=== PATIENT | male | born 1935 | race Caucasian/White ===

== ENCOUNTER 2018-12-09 19:07 | Inpatient (IN) ==
[2018-12-09] MEDS ORDERED: NS 1,000 ML IV PRN (20:41)
[2018-12-09] MEDS ORDERED: ZOFRAN IV PRN (20:41)
--- NOTE | 2018-12-09 21:20 | Diag Imaging Result Doc PS360 ---
CHEST-2 VIEWS - 12/09/2018 INDICATION: CHI, fever COMPARISON: 11/06/2018 FINDINGS: Stable sternotomy wires. Stable mild right hemidiaphragm elevation with adjacent linear atelectasis. No infiltrates or edema. No pneumothorax or pleural effusion. Heart size and pulmonary vascularity is normal. IMPRESSION: No change from prior. Electronically signed by Pan Mejia 12/09/2018 9:17 PM
--- NOTE | 2018-12-09 21:57 | Diag Imaging Result Doc PS360 ---
CT HEAD W/O CONTRAST - 12/09/2018 INDICATION: CHI, AMS and inability to walk COMPARISON: 05/02/2016 FINDINGS: The ventricles and sulci are normal in size and contour. There is stable mild to moderate periventricular white matter chronic microvascular disease. No intracranial mass or hemorrhage. The skull is intact. The sinuses, mastoids, and middle ears are clear. IMPRESSION: No acute disease or change from prior. This exam was performed using automated exposure control, adjustment of mA or kV according to patient size, and/or use of iterative reconstruction technique Electronically signed by Pan Mejia 12/09/2018 9:55 PM
--- NOTE | 2018-12-09 22:00 | Diag Imaging Result Doc PS360 ---
CT CERVICAL SPINE - 12/09/2018 INDICATION: CHI and inability to walk COMPARISON: 05/02/2016 FINDINGS: Alignment is anatomic. Vertebral body heights and intervertebral disc spaces are preserved. Stable mild multilevel degenerative disc disease with some osteophyte formation. This is most notable at C3-4, C5-6 and C6-7. Stable moderately advanced facet degeneration at numerous levels left greater than right. Stable advanced vascular calcification of the carotid bulbs. No significant central canal stenosis. IMPRESSION: Cervical spondylosis. Vascular disease of the carotid bulbs. No acute disease or change from prior. This exam was performed using automated exposure control, adjustment of mA or kV according to patient size, and/or use of iterative reconstruction technique Electronically signed by Pan Mejia 12/09/2018 9:57 PM
[2018-12-09 22:22] LABS: BASO# 0.03 X1000 (0.0-0.2); BASO% 0.2 % (0.0-0.8); HEMATOCRIT 44.7 % (42.0-52.0); IMM GRAN# 0.05 X1000 (0.0-0.04); IMM GRAN% 0.3 % (0.0-0.5); LYMPH# 1.16 X1000 (1.2-3.4); MCH 30.1 PG (27-31); MCHC 33.6 g/dL (33-37); MCV 89.8 FL (81-99); MONO# 1.72 X1000 (0.11-0.59); MONO% 8.9 % (1.7-9.3); MPV 9.4 FL (7.4-10.4); NEUT# 16.43 X1000 (1.4-6.5); NEUT% 84.6 % (42.2-75.2); PLT 175 X1000 (130-400); RBC 4.98 XMIL (4.7-6.1); RDW 14.1 % (11.5-14.5); WBC 19.39 X1000 (4.8-10.8)
[2018-12-09 22:30] LABS: INR 1.37
[2018-12-09 23:17] LABS: AGAP 10; ALB/GLOB RATIO 1.2; ALBUMIN 3.6 g/dL (3.5-5.0); ALKALINE PHOSPHATASE 73 U/L (32-122); BUN 18 mg/dL (8-22); CALCIUM 8.7 mg/dL (8.8-10.2); CHLORIDE 100 mmol/L (98-107); CK PROFILE 71 U/L (24-204); COSMO 282; CREATININE 1.1 mg/dL (0.7-1.2); ESTIMATED GFR > 60; GLUCOSE 173 mg/dL (70-104); GOT 13 U/L (10-34); GPT 10 U/L (10-44); POTASSIUM 3.4 mmol/L (3.5-5.1); SODIUM 138 mmol/L (136-145); TCO2 28 mmol/L (25-35); TOTAL PROTEIN 6.5 g/dL (6.3-8.3)
[2018-12-10] MEDS: TYLENOL PO PRN ×3 (00:30→20:24)
[2018-12-10] MEDS: KLOR-CON PO SCH ×3 (00:30→20:25)
[2018-12-10] MEDS: COLACE PO SCH ×3 (00:30→20:25)
[2018-12-10 00:50] LABS: URINE SOURCE CATH
[2018-12-10 00:59] LABS: BILIRUBIN URINE NEGATIVE (NEGATIVE); BLOOD URINE MODERATE (NEGATIVE); COLOR YELLOW; GLUCOSE URINE NEGATIVE (NEGATIVE); KETONE URINE TRACE mg/dL (NEGATIVE); LEUKOCYTES URINE MODERATE (NEGATIVE); NITRITE URINE POSITIVE (NEGATIVE); PROTEIN URINE 100 mg/dL (NEGATIVE); TURBIDITY URINE CLEAR (CLEAR); UR EPITHELIAL CELLS <10 /HPF (<10); URINE BACTERIA 4+ /HPF; URINE RBC <10 /HPF (<10); URINE WBC TNTC /HPF (<10); UROBILINOGEN URINE NORMAL (NORMAL)
[2018-12-10] MEDS: RESTASIS 0.05% OPH DROPS BOTH EYES SCH ×3 (05:42→20:24)
--- NOTE | 2018-12-10 07:42 | HISTORY AND PHYSICAL ---
INDICATIONS: Status post closed head injury with altered mental status. HISTORY OF PRESENT ILLNESS: Mr. Concepcion is an 83-year-old gentleman with a significant past medical history to include, but not limited to, history of anemia, atherosclerotic coronary artery disease, prostate cancer, hypertension, dyslipidemia, hypothyroidism, lifelong insomnia, testicular hypofunction and diabetes as well as vitamin D. He presents via private vehicle to the emergency room 24 hours after suffering a fall while on vacation with his family. The patient denies any lightheadedness or dizziness. He denies any fevers or chills. The daughter reports that over the past 24 hours patient has become more lethargic and altered, and inability to ambulate without significant assistance. This is a significant clinical change. Brief evaluation in the emergency room, the patient is alert and oriented x2 stating that the day of the week is Saturday versus Saturday. He is able to name the month and able to name the year. He also is familiar with his birthday. Based on the history of fall and ongoing use of anticoagulant, and altered mental status, it is felt prudent to admit the patient for initial overnight observation and further diagnostic workup. We will be pursuing a CT scan of the head and neck as well as some general laboratory and following up in the morning. MEDICATIONS ON ADMISSION: Including amlodipine 5 mg once daily, nasal saline as needed, Breo 1 puff once daily, Eliquis 5 mg twice daily, fish oil 1200 mg once daily, levothyroxine 137 mcg once daily, Lorazepam 3 mg p.o. at bedtime, potassium 20 mEq p.o. b.i.d., simvastatin 40 mg once daily. Flomax 0.4 mg twice daily, Tikosyn 500 mcg b[place] [address] [place] weekly. ALLERGIES: No drug allergies. SOCIAL HISTORY: The patient is after 58 years of marriage. One daughter and 3 grandchildren. No great grandchildren. 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 He has been fully retired since 1997. He is a nonsmoker. He reports approximately 1 drink per month of white wine. FAMILY HISTORY: Father at 62 due to [place]. Mother at 88 secondary to congestive heart failure. Brother at 68. Issues with regards to heart and 3 sisters , cause is unknown. He is the sole surviving member of his family. PAST MEDICAL HISTORY: Including insomnia for 20+ years. Hypertension. Asthma. Atrial fibrillation new onset in May of 2018. Hypothyroidism. History of BPH with lower urinary tract symptoms further complicated by erectile dysfunction, urge incontinence and hypogonadism. He had a TURP several months ago with a focal area of prostate cancer. This continues to be under observation. Dyslipidemia further complicated by history of coronary disease status post historical bypass. Diverticular disease. Chronically elevated right hemidiaphragm. Peripheral vascular disease. Borderline pulmonary hypertension with most recent cardiac echo showing PA pressures down from 40 to 35 mmHg with moderate TR. Vitamin D deficiency which he continues on supplement and historical low testosterone which is currently not being supplemented at this time. Some recent studies include a cardiac echo in [address] scan of the chest in July of 2018. CT scan of the chest demonstrating a small hiatal hernia. 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 REVIEW OF SYSTEMS: A 12 point Review of Systems is unremarkable except that noted within the HPI. PHYSICAL EXAMINATION: VITAL SIGNS: Vitals in the emergency room, temperature 100.4 degrees, pulse at 89, respirations at 20, blood pressure 106/73 saturating 92% on room air. Exam again is limited secondary to wheelchair-bound status. The patient is interviewed in the emergency room waiting room. LABORATORY DATA: White blood cell count elevated at 19.39, hemoglobin and hematocrit 15.0 and 47.7 with platelets at 175,000. He does have a left shift. PT/INR at 18.0 and 1.37. Sodium 138, potassium at 3.4, chloride 100, bicarb at 28, BUN and creatinine at 18 and 1.0. Glucose at 173. Calcium low at 8.7, AST and ALT at 13 and 10. CK at 71. Albumin at 3.6. Urine is noted to be markedly abnormal with the presence of protein, ketones, blood and nitrates, leukocytes and 4+ bacteria. Urine culture is pending at the time of admission. Additional studies including a CT scan of the cervical spine demonstrating cervical spondylosis with extensive vascular disease of the carotid bulbs when compared to previous cervical spine dated April of 2016. There are no new and/or additional findings. Non contrasted CT scan of the head when compared to previous study dated April of 2016 with no evidence of intracranial hemorrhage or mass. Skull is intact and sinuses are unremarkable. IMPRESSION: An 86-year-old with history of closed head injury complicated by altered mental status with clinical evidence suggestive of urinary tract infection. He will be admitted for IV antibiotics and further medical management based on the culture results. He has no allergies. He will be empirically started on Levaquin 500 mg once daily pending return of culture. Additional problems including hypokalemia will be managed with supplemental potassium and IV maintenance fluids, and inability to walk unassisted. We will have physical therapy see him today. No new and/or additional recommendations at this time. Note is dictated on the morning following admission. cc: Glen Bishop DO
[2018-12-10] MEDS: BREO ELLIPTA 200/25 MCG INH INH SCH (08:09)
[2018-12-10] MEDS ORDERED: NORVASC PO SCH (09:00)
[2018-12-10] MEDS: NS + KCL 20 MEQ 1,000 ML IV SCH (09:27)
[2018-12-10] MEDS: LEVAQUIN 500 MG/D5W 500 MG/100 ML IVPB IV SCH (09:27)
[2018-12-10] MEDS: ELIQUIS PO SCH ×2 (09:28→20:24)
[2018-12-10] MEDS: FLOMAX PO SCH (09:28)
[2018-12-10] MEDS: ZOCOR PO SCH (09:28)
[2018-12-10] MEDS: PATIENT'S OWN MED PO SCH ×2 (09:29→21:25)
--- NOTE | 2018-12-10 18:18 | PROGRESS NOTE ---
DATE: 12/10/2018 INDICATION FOR PROLONGED HOSPITALIZATION: Ongoing medical management for UTI. Vitals this afternoon: Blood pressure 118/77, pulse at 77, respirations at 24, temperature at 99.1 degrees, saturating 93% on room air. Inputs and outputs are 960 in and 575 out, for +385. No additional laboratory I for review at this time. The patient continues on IV Levaquin as well as normal saline with supplemental K. OBJECTIVE: Exam is unremarkable. Specifically:HEENT: Unremarkable. Cardiovascular: Irregularly irregular rhythm, but significantly less tachycardic than earlier this morning and last night when he was seen in the emergency room. Lungs: Decreased respiratory effort, but clear to auscultation. Abdomen: Soft. Extremities: Benign, without clubbing, cyanosis, or edema. Neurological: Cranial nerves 2 through 12 appear to be grossly intact. IMPRESSION: An 83-year-old status post 48 hours from closed head injury with altered mental status, presenting to the emergency room with systemic inflammatory response syndrome criteria by temperature, by pulse, by white blood cell count, likely urinary tract infection mediated, patient having spiked a fever this morning to 100.7 degrees. Blood cultures not obtained on admission. Urine culture is pending at the time of dictation. Orders for blood culture showed a patient spike of fever greater than 100.1 degrees. Hypokalemia, being replaced with supplemental potassium and intravenous fluids. Patient with atrial fibrillation with rapid ventricular response on admission. Patient continues in atrial fibrillation,, but not as tachycardic. Laboratory and electrocardiogram are pending for tomorrow morning. No new and/or additional recommendations at this time. Patient has been advised that he may take his own antiarrhythmic, specifically Tikosyn 500 mcg b.i.d. as prescribed by gas plant technician. Note is dictated on the evening of rounds. cc: Glen Bishop DO
[2018-12-10] MEDS ORDERED: VANCOMYCIN 1 GM/NS 1 GM/250 ML IVPB IV ONE (23:34)
[2018-12-11] MEDS: NS + KCL 20 MEQ 1,000 ML IV SCH ×2 (01:49→18:16)
[2018-12-11] MEDS: TYLENOL PO PRN (03:06)
[2018-12-11] MEDS: LEVAQUIN 500 MG/D5W 500 MG/100 ML IVPB IV SCH (06:30)
--- NOTE | 2018-12-11 07:14 | Diag Imaging Result Doc PS360 ---
EXAM: CHEST-PORTABLE 12/11/2018 HISTORY: fever TECHNIQUE: AP portable at 0616 COMMENT: The inspiration is less optimal than on 12/09/2018. There is subsegmental atelectasis in the right middle lobe and lower lobe. IMPRESSION: Right basilar atelectasis. Electronically signed by Nain Sewell 12/11/2018 7:12 AM
--- NOTE | 2018-12-11 07:21 | EKG Report ---
Test Performed on : 12/11/2018 07:12:51 AM Test Reason : Afib with RVR Blood Pressure : / mmHG Vent. Rate : 105 BPM Atrial Rate : 110 BPM P-R Int : 000 ms QRS Dur : 150 ms QT Int : 412 ms P-R-T Axes : 000 -52 110 degrees QTc Int : 544 ms Atrial fibrillation. with rapid ventricular response. Left axis deviation Left bundle branch block Abnormal ECG When compared with ECG of 10-DEC-2018 08:54, (Unconfirmed) QT has lengthened Confirmed by Irvin DOMINGUEZ, Jonas Jackson ([id number]) on 12/11/2018 6:39:20 PM
[2018-12-11 07:39] LABS: INR 1.6; PROTIME 20.2 Seconds (11.0-16.0)
[2018-12-11 07:40] LABS: BASO# 0.02 X1000 (0.0-0.2); BASO% 0.2 % (0.0-0.8); EOS# 0.12 X1000 (0.0-0.7); HEMATOCRIT 41.4 % (42.0-52.0); HEMOGLOBIN 13.7 g/dL (14.0-18.0); LYMPH# 0.99 X1000 (1.2-3.4); LYMPH% 8.4 % (20.5-51.1); MCH 29.9 PG (27-31); MCHC 33.1 g/dL (33-37); MCV 90.4 FL (81-99); MONO# 1.16 X1000 (0.11-0.59); MONO% 9.9 % (1.7-9.3); MPV 10.1 FL (7.4-10.4); NEUT# 9.45 X1000 (1.4-6.5); NEUT% 80.5 % (42.2-75.2); PLT 157 X1000 (130-400); RBC 4.58 XMIL (4.7-6.1); RDW 14.2 % (11.5-14.5); WBC 11.74 X1000 (4.8-10.8)
[2018-12-11] MEDS: PATIENT'S OWN MED PO SCH ×2 (08:06→21:54)
[2018-12-11] MEDS: KLOR-CON PO SCH ×2 (08:06→21:54)
[2018-12-11] MEDS: FLOMAX PO SCH (08:06)
[2018-12-11] MEDS: ELIQUIS PO SCH ×2 (08:07→21:54)
[2018-12-11] MEDS: RESTASIS 0.05% OPH DROPS BOTH EYES SCH ×2 (08:07→21:54)
[2018-12-11] MEDS: ZOCOR PO SCH (08:07)
[2018-12-11] MEDS: COLACE PO SCH ×2 (08:07→21:54)
--- NOTE | 2018-12-11 08:10 | PROGRESS NOTE ---
DATE: 12/11/2018 INDICATION FOR PROLONGED HOSPITALIZATION: Patient spiking fever to 102.8 last night, status post addition of vancomycin to Levaquin pending return of final urine culture, and now blood culture is pending at the time of dictation. Patient complaining of generalized weakness, and requesting to ambulate in the lopez secondary to same. OBJECTIVE: Vital signs: This morning, temperature at 99.4 degrees, pulse rate at 59, blood pressure 93/57, and oxygen at 90%. I's/O's 1200 in and 1375 out for -175. HEENT: Unremarkable. Cardiovascular: Bradycardic. Lungs: With decreased respiratory sounds throughout secondary to poor inspiratory effort. There are no wheezes, rhonchi or rales. Abdomen: Soft with some nonspecific tenderness localizing in the left lower quadrant, but without rebound or guarding. Extremities: Benign without clubbing, cyanosis, or edema. Neurological: Cranial nerves 2-12 appear to be grossly intact. LABORATORY: Pending this morning. It includes CBC and CMP. Blood cultures and urine cultures are pending at the time of dictation. IMPRESSION: An 83-year-old with history of closed head injury earlier in the week, admitted for altered mental status and fever. Found to have abnormal urinalysis. Currently being covered with Levaquin pending final results of urine culture. However, last night spiking fever to 102.8, raising concern for concurrent process and/or suboptimal coverage. A single dose of vancomycin offered last night with blood cultures pending this morning. Now with nonspecific left lower quadrant pain, perhaps a source of fever and abnormal exam. Historical review of hospital radiology reports fails to demonstrate any evidence of historical CT scan of the abdomen and pelvis. This will be ordered today with interval followup this evening. There is some concern with spiking fevers, and now bradycardia and hypotension. We will be holding the Norvasc and following clinically in this regard. Transition to intensive care unit for vasopressor support may be indicated. We will be obtaining orthostatic vitals today and, provided the patient is safe, allowing the patient to ambulate as requested. No new and/or additional recommendations at this time. We will return this evening to discuss labs and CT scan findings. cc: Glen Bishop DO
[2018-12-11 08:16] LABS: AGAP 10; ALBUMIN 2.9 g/dL (3.5-5.0); ALKALINE PHOSPHATASE 89 U/L (32-122); BUN 15 mg/dL (8-22); CALCIUM 8.5 mg/dL (8.8-10.2); CHLORIDE 107 mmol/L (98-107); COSMO 282; CREATININE 0.8 mg/dL (0.7-1.2); ESTIMATED GFR > 60; GLUCOSE 131 mg/dL (70-104); GOT 23 U/L (10-34); GPT 14 U/L (10-44); POTASSIUM 3.6 mmol/L (3.5-5.1); SODIUM 140 mmol/L (136-145); TCO2 23 mmol/L (25-35); TOTAL BILIRUBIN 0.64 mg/dL (0.20-1.00); TOTAL PROTEIN 5.7 g/dL (6.3-8.3)
[2018-12-11 08:18] LABS: VITAMIN D 25 HYDROXY 32.7 NG/DL
[2018-12-11] MEDS: BREO ELLIPTA 200/25 MCG INH INH SCH (08:21)
[2018-12-11] MEDS ORDERED: MIRALAX PO SCH (09:00)
--- NOTE | 2018-12-11 10:22 | Diag Imaging Result Doc PS360 ---
EXAM: CT ABDOMEN/PELVIS W/WO DANNIEAS 12/11/2018 HISTORY: LLQ pain, fever 102.8 and low BP TECHNIQUE: This exam was performed using automated exposure control, adjustment of mA or kV according to patient size, and/or use of iterative reconstruction technique. COMMENT: There are no previous abdominal studies available for comparison, where possible comparison is made with the CT of the chest dated 07/21/2018. Compared to the previous thoracic study there is more atelectasis or pneumonia in the right lower lobe. There is also some atelectatic change in the right middle lobe and left lower lobe which is similar in appearance to the previous study. There are some apparent granulomata present in the left lower lobe. There are bilateral small pleural effusions. This was not previously the case. The liver is somewhat inverted. There are no apparent gallstones. There is a 1 to 2 mm calculus in the upper pole of the right kidney. There are some calcifications present in the cortex or at in the wall of the cysts present in the lower pole of the right kidney. There is no evidence of nephrolithiasis on the left. There is no evidence of hydronephrosis. There is no evidence of ureterolithiasis. There is a Reaves catheter in the bladder. There are granulomata in the spleen. The adrenal glands are not enlarged. There is some edema around the tail of the pancreas and in the anterior pararenal space on the left which was not the case at the time the previous thoracic study. There is gas and stool throughout the colon. There are numerous renal cysts. There is decreased contrast enhancement in the anterior renal cortex on the right which may be indicative of pyelonephritis. There is some slight edema anterior to Gerota's fascia on the right. The appendix is unremarkable. There is no evidence of small bowel obstruction. There is no evidence of significant adenopathy. Pelvis: There is stool throughout the rectosigmoid colon particularly in the rectum. There is no evidence of free fluid. There is contrast in both distal ureters. There is no evidence of mass or significant adenopathy. There is left-sided spondylolysis at L5. No evidence of acute bony abnormality is present. IMPRESSION: 1. Atelectasis versus pneumonia right lower lobe. Bilateral small effusions. 2. Mild interstitial pancreatitis. 3. Right pyelonephritis. 4. Constipation. Electronically signed by Nain Sewell 12/11/2018 10:19 AM
[2018-12-11] MEDS: ROCEPHIN 1 GM in NS 50 ML IV SCH (14:27)
[2018-12-11 14:52] LABS: PTT 39.1 Seconds (22.3-41.8)
[2018-12-11 17:24] LABS: INR MIXING STUDY 0 MIN 1.12; PROTIME MIXING STUDY O MIN 15.3 Seconds (9.2-11.7); PTT MIXING STUDY O MIN 31.8 Seconds (22.0-36.0)
[2018-12-11 17:25] LABS: INR MIXING STUDY 30 MIN 1.13; INR MIXING STUDY 60 MIN 1.14; PROTIME MIXING STUDY 3O MIN 15.5 Seconds (9.2-11.7); PROTIME MIXING STUDY 6O MIN 15.5 Seconds (9.2-11.7)
[2018-12-11 17:26] LABS: INR MIXING STUDY 120 MIN 1.16; INR MIXING STUDY 90 MIN 1.14; PROTIME MIXING STUDY 12O MIN 15.7 Seconds (9.2-11.7); PTT MIXING STUDY 12O MIN 34.3 Seconds (22.0-36.0); PTT MIXING STUDY 6O MIN 33.4 Seconds (22.0-36.0)
[2018-12-11] MEDS ORDERED: METAMUCIL PO ONE (18:37)
--- NOTE | 2018-12-11 18:38 | EKG Report ---
Test Performed on : 12/10/2018 08:54:07 AM Test Reason : On admission Afib history Blood Pressure : / mmHG Vent. Rate : 104 BPM Atrial Rate : 117 BPM P-R Int : 000 ms QRS Dur : 152 ms QT Int : 376 ms P-R-T Axes : 000 -54 118 degrees QTc Int : 494 ms Atrial fibrillation. with rapid ventricular response. Left axis deviation Left bundle branch block Abnormal ECG When compared with ECG of 02-MAY-2016 11:34, Atrial fibrillation. has replaced Sinus rhythm. Left bundle branch block is now present Minimal criteria for Septal infarct are no longer present Confirmed by Irvin DOMINGUEZ, Jonas Jackson ([id number]) on 12/11/2018 6:38:19 PM
--- NOTE | 2018-12-11 19:50 | PROGRESS NOTE ---
DATE: 12/11/2018 INDICATION FOR PROLONGED HOSPITALIZATION: Ongoing management for sepsis based on SIRS criteria and gram-negative rei on admission urine culture. Blood cultures are still pending for recent fever to 102.8. Based on abnormal exam today, he underwent a CT scan of the abdomen and pelvis with findings consistent with nonspecific atelectatic changes in the right middle and left lower lobes, bilateral small pleural effusions. Some nonspecific edema around the tail of the pancreas and anterior pararenal space on the left, decreased contrast enhancement in the right renal cortex on the right which may be indicative of pyelonephritis. This is further complicated by a small amount of edema in the fascia on the right. Constipation, particularly localized in the rectosigmoid region. Results are reviewed and discussed with the patient. OBJECTIVE: Most Recent Set of Vitals: Blood pressure 150/77, respirations at 18, temperature at 99.0 degrees, saturating 95% on room air. HEENT: Unremarkable. Cardiovascular: Regular rate and rhythm. Lungs: Clear. Abdomen: Soft. Nonspecific tenderness in the bilateral lower quadrants without rebound or guarding. Extremities: Trace pretibial edema is suggested in the lower extremities. Neurological: Cranial nerves 2 through 12 are grossly intact. Patient is alert and oriented x3. LABORATORY: For today, showing a white blood cell count of 11.74, down from 19.39, hemoglobin and hematocrit at 13.7 and 41.4, platelets at 157,000. PT prolonged at 20.2 with INR 1.6. PT failing to correct with mixing studies. Sodium 140, potassium 3.6, chloride 107, BUN and creatinine at 15 and 0.8, glucose at 137, calcium at 8.5. AST and ALT are normal at 23 and 14. Albumin is slightly decreased at 2.9. Plasma lactate at 0.8. B12 low at 278. Vitamin D low normal at 32.7. IMPRESSION: An 83-year-old with sepsis, likely urologic mediated. He continues on Levaquin and Rocephin. Urine culture is consistent with gram-negative rods. Blood cultures are pending. Patient continues with low grade fever at 99, but is otherwise hemodynamically stable with a more appropriate heart rate and blood pressure rising. CT scan today showing findings as mentioned above. He has several issues, including nonspecific edema of the tail of the pancreas suggestive of pancreatitis, and also changes within the right kidney suggestive of pyelonephritis, and constipation. We will be adjusting his cathartic therapy and following clinically. I have advised them that return of negative blood cultures would be favorable, and no fever for 24 hours on antibiotics as well as a progression in his appetite would all be necessary prior to consideration for discharge. We also discussed rehab placement as a viable option when transitioning to home. I do not feel that the patient is well enough to return to home and independent living, and rehab offers him the best chance of recovery possible. DISPOSITION: The patient understands the course of treatment and plan. No further issues at this time. Note is dictated on the evening of rounds. I will be contacting the daughter accordingly. cc: DO STEFFANIE Ely
[2018-12-11] MEDS: MIRALAX PO SCH (21:54)
[2018-12-12] MEDS: LEVAQUIN 500 MG/D5W 500 MG/100 ML IVPB IV SCH (06:31)
[2018-12-12] MEDS ORDERED: DULCOLAX PR ONE (07:04)
[2018-12-12 07:16] LABS: HEMATOCRIT 43.1 % (42.0-52.0); HEMOGLOBIN 14.7 g/dL (14.0-18.0); LYMPH% 12.1 % (20.5-51.1); MCH 30.1 PG (27-31); MCHC 34.1 g/dL (33-37); MCV 88.1 FL (81-99); MPV 9.4 FL (7.4-10.4); NEUT% 72.5 % (42.2-75.2); PLT 156 X1000 (130-400); RBC 4.89 XMIL (4.7-6.1); WBC 9.35 X1000 (4.8-10.8)
[2018-12-12 07:17] LABS: BASO# 0.02 X1000 (0.0-0.2); BASO% 0.2 % (0.0-0.8); EOS# 0.17 X1000 (0.0-0.7); EOS% 1.8 % (0.0-10.0); IMM GRAN# 0.06 X1000 (0.0-0.04); IMM GRAN% 0.6 % (0.0-0.5); LYMPH# 1.13 X1000 (1.2-3.4); MONO% 12.8 % (1.7-9.3); NEUT# 6.77 X1000 (1.4-6.5)
[2018-12-12 07:40] LABS: PROTIME 17.9 Seconds (11.0-16.0)
[2018-12-12 07:41] LABS: INR 1.37
[2018-12-12 07:42] LABS: PTT 38.6 Seconds (22.3-41.8)
[2018-12-12 07:50] LABS: MAGNESIUM 1.7 mg/dL (1.5-2.7); PHOSPHORUS 1.7 mg/dL (2.7-4.5)
[2018-12-12 08:04] LABS: AGAP 11; ALB/GLOB RATIO 1.2; ALKALINE PHOSPHATASE 84 U/L (32-122); AMYLASE 25 U/L (20-200); BUN 12 mg/dL (8-22); CALCIUM 8.1 mg/dL (8.8-10.2); CHLORIDE 104 mmol/L (98-107); COSMO 276; CREATININE 0.8 mg/dL (0.7-1.2); ESTIMATED GFR > 60; GLUCOSE 107 mg/dL (70-104); GOT 53 U/L (10-34); GPT 35 U/L (10-44); LIPASE 27 U/L (13-60); POTASSIUM 3.9 mmol/L (3.5-5.1); SODIUM 138 mmol/L (136-145); TCO2 23 mmol/L (25-35); TOTAL PROTEIN 5.5 g/dL (6.3-8.3)
[2018-12-12] MEDS: NS + KCL 20 MEQ 1,000 ML IV SCH ×3 (08:17→22:01)
--- NOTE | 2018-12-12 09:03 | Diag Imaging Result Doc PS360 ---
EXAM: CHEST-2 VIEWS 12/12/2018 HISTORY: Fever on ABX TECHNIQUE: PA and lateral chest COMMENT: There are platelike opacities over the right base. There appears to be some loculated pleural effusion or thickening laterally on the right which was not present on 12/11/2018. The lungs are actually better expanded on the current study. IMPRESSION: Atelectasis versus pneumonia in the right lower and/or middle lobe. Small loculated right pleural effusion. Electronically signed by Nain Sewell 12/12/2018 9:01 AM
[2018-12-12] MEDS: BREO ELLIPTA 200/25 MCG INH INH SCH (09:30)
[2018-12-12] MEDS: CYANOCOBALAMIN IM SCH (11:00)
[2018-12-12] MEDS: MIRALAX PO SCH ×2 (11:00→21:42)
[2018-12-12] MEDS: FLOMAX PO SCH (11:01)
[2018-12-12] MEDS: KLOR-CON PO SCH ×2 (11:01→21:43)
[2018-12-12] MEDS: COLACE PO SCH ×2 (11:01→21:43)
[2018-12-12] MEDS: ELIQUIS PO SCH ×2 (11:01→21:43)
[2018-12-12] MEDS: RESTASIS 0.05% OPH DROPS BOTH EYES SCH ×2 (11:01→21:49)
[2018-12-12] MEDS: ZOCOR PO SCH (11:01)
[2018-12-12] MEDS: PATIENT'S OWN MED PO SCH ×2 (11:03→22:01)
[2018-12-12] MEDS ORDERED: MAGNESIUM SULFATE 1 GM/D5W 1 GM/100 ML IVPB IV ONE (13:59)
[2018-12-12] MEDS: ROCEPHIN 1 GM in NS 50 ML IV SCH (14:22)
--- NOTE | 2018-12-12 16:40 | PROGRESS NOTE ---
DATE: 12/12/2018 INDICATION FOR PROLONGED HOSPITALIZATION: Ongoing treatment for sepsis related to a urinary tract infection with negative blood cultures. Klebsiella oxytoca is the identified organism from urine culture dated 12/09/2018. The patient appears to be more responsive and more like his normal self today. Labs are reviewed and showed interval improvement with decrease in white blood cell count from 19.3 to 11.7, now normal at 9.35. He is noted to have low normal magnesium and low phosphorus. These can be supplemented both orally and IV. Amylase and lipase are negative. Nonspecific abnormalities on CT scan are noted to be unremarkable. The patient has been up to chair as well as up and out of bed, ambulating in the halls without difficulty. VITAL SIGNS: Blood pressure 131/77, pulse at 77, temperature at 99.1 degrees, saturating 94% on room air. IMAGING: Chest x-ray for this morning showing evidence of possible loculated pleural effusion on the right, not present on previous chest x-ray. Atelectasis versus pneumonia in the right lower lobe is suggested. Clinical correlation is recommended. Patient's last CT scan of record noted to be July 2018 with evidence of right hemidiaphragm elevation, dilation of the ascending aorta at 4 cm, and some dependent atelectasis in the right lower lobe. Otherwise, no significant abnormality was seen at that time. I do not feel that there is an indication for repeating the CT scan at this time. However, should he continue to spike or maintain a low-grade fever, they and re-evaluation may be indicated. PHYSICAL EXAMINATION: HEENT: Unremarkable. Cardiovascular: Irregularly irregular rhythm. Lungs: Without wheezes, rhonchi or rales. Abdomen: With some nonspecific tenderness in the epigastric and bilateral lower quadrant but without rebound or guarding. Extremities: Benign without clubbing, cyanosis, or edema. Neurological: Cranial nerves 2-12 are grossly intact. Patient is alert and oriented x3 without any cognitive deficiencies. LABORATORY DATA: For today, white blood cell count 9.35, hemoglobin and hematocrit at 14.7 and 43.1 with platelets at 156,000. Sodium 138, potassium 3.9, chloride 104, bicarb 23, BUN and creatinine at 12 and 0.8. Magnesium 1.7. Phosphorus low at 1.7 as well. AST and ALT at 53 and 35 respectively, albumin at 3.0, amylase and lipase normal at 25 and 75 respectively. IMPRESSION AND PLAN: An 83-year-old with Klebsiella urinary tract infection complicated by clinical sepsis. Patient is not requiring vasopressor support nor and increase in level of care at this time. He does appear to be clinically improving, albeit slowly. My only concern at this point is that he be 24 hours fever free. We will work on supplementing his magnesium and his phosphorus, which are low to low-normal. He continues on dual antibiotics including Levaquin and Rocephin. We have provided supplemental cathartic agent for constipation complaints, and will be trying to discuss his case with Social Work with regards to placement either on SaturdayDecember 13 or early next week December 15. The patient understands the course of treatment and plan. No further issues at this time. Note is dictated on the afternoon of rounds. cc: DO STEFFANIE Ely
[2018-12-12] MEDS: NEUTRA-PHOS PO SCH ×2 (18:43→21:49)
[2018-12-13] MEDS: NS + KCL 20 MEQ 1,000 ML IV SCH ×2 (04:39→15:26)
[2018-12-13] MEDS: LEVAQUIN 500 MG/D5W 500 MG/100 ML IVPB IV SCH (05:47)
[2018-12-13] MEDS: BREO ELLIPTA 200/25 MCG INH INH SCH (08:30)
[2018-12-13] MEDS: MIRALAX PO SCH ×2 (09:42→20:03)
[2018-12-13] MEDS: PATIENT'S OWN MED PO SCH (09:42)
[2018-12-13] MEDS: NEUTRA-PHOS PO SCH ×4 (09:42→20:03)
[2018-12-13] MEDS: RESTASIS 0.05% OPH DROPS BOTH EYES SCH ×2 (09:42→22:08)
[2018-12-13] MEDS: COLACE PO SCH ×2 (09:42→20:03)
[2018-12-13] MEDS: ZOCOR PO SCH (09:43)
[2018-12-13] MEDS: ELIQUIS PO SCH ×2 (09:43→20:10)
[2018-12-13] MEDS: FLOMAX PO SCH (09:43)
[2018-12-13] MEDS: CYANOCOBALAMIN IM SCH (09:43)
[2018-12-13] MEDS: KLOR-CON PO SCH ×2 (09:43→20:03)
[2018-12-13] MEDS ORDERED: HALL'S COUGH LOZENGE MT PRN (10:05)
[2018-12-13 12:55] LABS: AGAP 10; ALBUMIN 2.9 g/dL (3.5-5.0); ALKALINE PHOSPHATASE 91 U/L (32-122); BUN 13 mg/dL (8-22); CALCIUM 8.7 mg/dL (8.8-10.2); CHLORIDE 104 mmol/L (98-107); COSMO 282; CREATININE 0.9 mg/dL (0.7-1.2); ESTIMATED GFR > 60; GLUCOSE 174 mg/dL (70-104); GOT 94 U/L (10-34); GPT 75 U/L (10-44); SODIUM 139 mmol/L (136-145); TCO2 25 mmol/L (25-35); TOTAL PROTEIN 5.9 g/dL (6.3-8.3)
--- NOTE | 2018-12-13 12:55 | PROGRESS NOTE ---
DATE: 12/13/2018 INDICATION FOR PROLONGED HOSPITALIZATION: Sepsis secondary to Klebsiella UTI without evidence of bacteremia. The patient is markedly better and continues to improve. He is now fever-free for more than 24 hours. He complains of some cough and some issues with regards to sleep. He has had 2 bowel movements and is pleased with these results. OBJECTIVE: VITAL SIGNS: Temperature at 98.5 degrees pulse at 69, blood pressure 140/79, patient is saturating 95% on room air. Intake and output, 1225 in and 700 out for +525. Cumulatively for hospitalization, he is down approximately 1.64 L. LABORATORY DATA: No laboratory is available for review this morning. No additional blood cultures or findings are available for review. DIAGNOSTIC DATA: EKG demonstrating the presence of atrial fibrillation with rapid ventricular response. This EKG, however, is dated 12/11/2018. PHYSICAL EXAMINATION: HEENT: Unremarkable. Cardiovascular: Appears to be back in sinus rhythm with a regular rate. Lungs: Clear without wheezes, rhonchi, or rales. Abdomen: Soft with decreased but present bowel sounds. Extremities: Benign without clubbing, cyanosis, or edema. Neurological: Cranial nerves 2-12 are grossly intact. Patient is alert oriented x3 without any cognitive deficiencies. IMPRESSION AND PLAN: 1. An 83-year-old with Klebsiella urinary tract infection complicated by sepsis on admission. He is now fever-free. He continues on IV antibiotics. I do think that he is stable at this point and ready for discharge when in rehab placement is available. The family is interested in placement in [place] at [facility] or at [facility]. I do think that he would be an excellent candidate for either of those 2 places. 2. With regard to cough, he is requesting some bedside lozenges. We will be providing this. His pulmonary exam with not illicit any concern. However, chest x-ray will be ordered for tomorrow. 3. With regard to followup on constipation, he has had several bowel movements since yesterday and has no other complaints in that regard. DISPOSITION: We will seek placement at rehab now that he is clinically stable and fever-free. Continue to follow clinically pending bed availability. No new and/or additional recommendations at this time. Note is dictated on the morning of rounds. cc: Glen Bishop DO
[2018-12-13 12:56] LABS: MAGNESIUM 1.9 mg/dL (1.5-2.7); PHOSPHORUS 2.4 mg/dL (2.7-4.5)
[2018-12-13] MEDS: ROCEPHIN 1 GM in NS 50 ML IV SCH (14:17)
--- NOTE | 2018-12-13 15:48 | CARDIOLOGY CONSULTATION ---
DATE: 12/13/2018 REASON FOR CONSULTATION: Cardiology was consulted for torsade nonsustained ventricular tachycardia. HISTORY OF PRESENT ILLNESS: Mr. Kumar Concepcion is an 83-year-old gentleman who is admitted with altered mental status, sepsis secondary to Klebsiella urinary tract infection without evidence of bacteremia. Was doing well. He was admitted, started on ceftriaxone and Levaquin for his urinary tract infection with Klebsiella. He had an episode noted on telemetry where he had runs of broad complex tachycardia, subsequently had a 10 second initially broad- complex tachycardia suggestive of torsade. Then he had another episode of 30 second broad-complex tachycardia suggestive of torsade ventricular tachycardia. He felt dizzy, did not lose consciousness. A CAT call was instituted. Patient spontaneously came back into normal rhythm. Patient was transferred to ICU. His electrocardiogram revealed normal sinus rhythm with a left bundle branch block. Intermittently he has had atrial fibrillation, paroxysmal, in Dr. Bishop's office as well, and patient at the present time does not complain of any discomfort. He has had occasional episodes of palpitations in the past. However, had been well controlled. Did not complain of any chest pain. Prior to this admission, there is no history of any dizziness or syncope. He had been taking his medications regularly. He is followed by Dr. York at [facility] for his atrial fibrillation. He was started on Tikosyn as well. He has known coronary artery disease and as listed below. REVIEW OF SYSTEMS: A 14-point review of system was done.Genitourinary system: As above. Cardiovascular System: As above. Central nervous system: No focal weakness to suggest a CVA, TIA. Genitourinary System: As above. Respiratory System: There is no history of cough, expectoration, hemoptysis. There is no history of fevers or chills. PAST MEDICAL HISTORY: 1. Coronary artery disease status post 2-vessel coronary artery bypass grafting at [facility] in 2009. 2. Carcinoma of the prostate. 3. Paroxysmal atrial fibrillation, on Tikosyn. 4. Asthma. 5. Diabetes. 6. Hypothyroidism. 7. Benign prostatic hypertrophy. 8. Hypercholesterolemia. 9. Status post TURP in the past. 10. 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 11. Elevated diaphragm chronically. 12. Diverticular disease. 13. Erectile dysfunction, hypogonadism. HOME MEDICATIONS: Include: 1. Amlodipine 5 mg a day. 2. Breo 1 puff daily. 3. Eliquis 5 b.i.d. 4. Fish oil. 5. Levothyroxine 137. 6. Lorazepam 3. 7. Potassium supplements 20 p.o. b.i.d. 8. Simvastatin 40 mg. 9. Tikosyn 500 mcg twice daily. 10. Flomax 0.4. 11. Vitamin D. PHYSICAL EXAMINATION: Vital Signs: Blood pressure was 106/70. Cardiovascular: First and second heart sounds were heard. There was no S3 gallop. There is a faint systolic murmur. Respiratory System: Normal air entry. There were no crepitations or rhonchi. Abdomen: Soft, nontender. There was no guarding or rigidity. Bowel sounds were heard. Central nervous system: Alert and oriented. He was moving all 4 extremities. Extremities: No pedal edema. ASSESSMENT AND PLAN: 1. Mr. Kumar Concepcion is an 83-year-old gentleman who is admitted with sepsis secondary to Klebsiella urinary tract infection. Has been progressing well, had an episode of torsade and recurrent episodes of polymorphic ventricular tachycardia. The patient has had intermittent atrial fibrillation as well. There was a CAT call today given his sustained ventricular tachycardia. Patient is in ICU, currently in sinus rhythm. As far as his laboratory examination is concerned, his potassium and magnesium will be checked again. They are well within therapeutic range. The etiology is likely to be related to Levaquin as he has had on telemetry episodes of bradycardia as well. We will discontinue the Levaquin. 2. He is on Tikosyn at home. There is a 3 to 4 percent chance of having ventricular tachycardia on the Tikosyn as well. However, he has not had these problems while he was on Tikosyn. Regardless, given the current diagnosis and finding, we will discontinue the Tikosyn. 3. We will get an echocardiogram to assess cardiac and valvular function, continue with serial cardiac enzymes to make sure there is no non-Q-wave myocardial infarction. 4. As far as his atrial fibrillation is concerned, should it recur, we will plan to treat it with other agents and plan for rate control. 5. Diabetes. Continue with his current medications. 6. Urinary tract infection. He is on ceftriaxone. Continue with that and discontinue his Levaquin. 7. He is on Eliquis for stroke prophylaxis at the present time. I have not made any changes. 8. Hypercholesterolemia. He is on Zocor. I have not made any changes to his medications. He also has received magnesium sulfate intravenously. Thank you for the consult. cc: MD Glen Morataya DO MTDD
--- NOTE | 2018-12-13 17:53 | Diag Imaging Result Doc PS360 ---
CHEST-2 VIEWS - 12/13/2018 INDICATION: cough COMPARISON: 12/12/2018 FINDINGS: Stable right hemidiaphragm elevation. The adjacent atelectasis or infiltrate has resolved. The lungs are clear of infiltrate. Heart size is normal. No pneumothorax or pleural effusion. IMPRESSION: No acute disease. Electronically signed by Pan Mejia 12/13/2018 5:51 PM
--- NOTE | 2018-12-13 17:55 | PROGRESS NOTE ---
DATE: 12/13/2018 CRITICAL CARE NOTE: A CAT call was called secondary to acute change in heart rate. Telemetry demonstrating evidence of ventricular tachycardia versus torsade de pointe with variable amplitude of tachy dysrhythmia. There appears to be prior to this episode a significant amount of ectopy perhaps even consistent with about a 20 to 25 beat run of ventricular tachycardia. Labs were ordered a based on increased atrial dysrhythmia and tachycardia. He continues to have a slightly low phosphorus. The remainder of his electrolytes are noted to be unremarkable. CK is 54, and initial troponin at 0.038. The patient complained during sustained ventricular ectopy of feeling faint, and is as saying "felt like he was dying". CPR was not initiated nor were any ACLS drugs. Based on patient's unstable nature, he will be transferred to the ICU with cardiology consultation. He is being transferred to ICU #6. We will also be holding the Levaquin as a potential contributor to prolonged QT interval and increased risk for ventricular ectopy. Further opinion from Cardiology to follow. I have also called the daughter and advised her of this transitioning care and moving the patient from the floor to the ICU for some further monitoring. The patient remains a full code. He has a previous history of atherosclerotic coronary artery disease, and is followed by Cardiology. No new and/or additional recommendations at this time. Note is dictated at the time of transfer to the ICU. cc: DO STEFFANIE Ely
[2018-12-13] MEDS: AMBIEN PO SCH (20:03)
[2018-12-14] MEDS: NS + KCL 20 MEQ 1,000 ML IV SCH ×2 (05:21→13:53)
[2018-12-14] MEDS: TYLENOL PO PRN ×2 (05:33→21:00)
[2018-12-14 06:28] LABS: BASO# 0.06 X1000 (0.0-0.2); BASO% 0.6 % (0.0-0.8); EOS# 0.25 X1000 (0.0-0.7); EOS% 2.5 % (0.0-10.0); HEMATOCRIT 43.5 % (42.0-52.0); HEMOGLOBIN 14.6 g/dL (14.0-18.0); IMM GRAN# 0.06 X1000 (0.0-0.04); IMM GRAN% 0.6 % (0.0-0.5); LYMPH# 1.72 X1000 (1.2-3.4); LYMPH% 16.9 % (20.5-51.1); MCH 29.6 PG (27-31); MCHC 33.6 g/dL (33-37); MCV 88.2 FL (81-99); MONO# 1.65 X1000 (0.11-0.59); MONO% 16.2 % (1.7-9.3); NEUT# 6.44 X1000 (1.4-6.5); NEUT% 63.2 % (42.2-75.2); PLT 186 X1000 (130-400); RBC 4.93 XMIL (4.7-6.1); RDW 13.9 % (11.5-14.5); WBC 10.18 X1000 (4.8-10.8)
[2018-12-14 06:54] LABS: MAGNESIUM 1.9 mg/dL (1.5-2.7); PHOSPHORUS 3.2 mg/dL (2.7-4.5)
[2018-12-14 06:57] LABS: AGAP 10; BUN 13 mg/dL (8-22); CALCIUM 8.6 mg/dL (8.8-10.2); CHLORIDE 106 mmol/L (98-107); COSMO 283; CREATININE 0.8 mg/dL (0.7-1.2); ESTIMATED GFR > 60; GLUCOSE 134 mg/dL (70-104); POTASSIUM 4.3 mmol/L (3.5-5.1); SODIUM 141 mmol/L (136-145); TCO2 25 mmol/L (25-35)
[2018-12-14] MEDS: NEUTRA-PHOS PO SCH ×2 (08:24→13:53)
[2018-12-14] MEDS: MIRALAX PO SCH ×2 (08:24→22:01)
[2018-12-14] MEDS: ELIQUIS PO SCH ×2 (08:25→22:02)
[2018-12-14] MEDS: KLOR-CON PO SCH ×2 (08:25→22:02)
[2018-12-14] MEDS: CYANOCOBALAMIN IM SCH (08:25)
[2018-12-14] MEDS: FLOMAX PO SCH (08:25)
[2018-12-14] MEDS: ZOCOR PO SCH (08:25)
[2018-12-14] MEDS: COLACE PO SCH ×2 (08:25→22:02)
[2018-12-14] MEDS: RESTASIS 0.05% OPH DROPS BOTH EYES SCH ×2 (08:26→22:02)
--- NOTE | 2018-12-14 08:53 | PROGRESS NOTE ---
DATE: 12/14/2018 INDICATION FOR PROLONGED HOSPITALIZATION: Ongoing treatment for sepsis, likely urinary tract/Klebsiella mediated. Yesterday, an event on the floor with tachy dysrhythmia, likely torsade de pointes. Etiology is likely multifactorial including but not limited to Levaquin use for urinary tract infection resulting in likely prolongation of QT interval and at Tikosyn with potential side effect of pro-dysrhythmia. Cardiology has been consulted and has been in contact with patient's manager mobility in [employer]. [place] agreement at this point to stop the Tikosyn and allow this to wash out of the system, as well as hold the Levaquin and continue with Rocephin. Klebsiella species obtained on admission is resistant to ampicillin and intermediately sensitive to Zosyn but has otherwise burnett-sensitivity. A repeat urine culture will be obtained today. Overnight, he has been hemodynamically stable. His blood pressure this morning is 132/91, respirations at 21, saturating 91%, with a pulse at 68. EKG is reviewed, demonstrating the presence of normal sinus rhythm with PACs. There is some concern with the change in the QRS morphology in the precordial leads with what appears to be some T-wave inversion in the anteroseptal leads which is new when compared to previous EKG dated December 11 and December 10. I have folded over the EKGs and advised the nurse to bring this to cardiology's attention. His cardiac enzymes over the past 12 to 24 hours have been negative for any evidence of myocardial damage but he has known coronary disease, status post bypass in 2009, and development of atrial fibrillation in May of 2018. Vitals this morning as per above. PHYSICAL EXAMINATION: HEENT: Unremarkable. Cardiovascular: Regular rate with increased ectopic beats. Lungs: Clear. Abdomen: Not assessed. Extremities: Benign. Neurological: Cranial nerves 2-12 are grossly intact. Patient is alert and oriented x3 without any cognitive deficiencies. LABORATORY: For this morning, white blood cell count 10.18, hemoglobin and hematocrit at 14.6 and 43.5, with platelets at 186,000. Sodium at 141, potassium at 4.3, chloride at 106, bicarb at 25, BUN and creatinine at 13 and 0.8, glucose at 134, calcium at 8.6, phosphorus normal at 3.2, magnesium normal at 1.9. Cardiac enzymes are ranging between 54 and 49. Isolated troponin score is negative. IMPRESSION: 1. An 83-year-old with a history of atrial fibrillation, not well controlled on Tikosyn with breakthrough during this hospitalization and now with torsade de pointe, likely interaction between Tikosyn and Levaquin. Both agents have been stopped at this point. A repeat urine culture will be obtained since that is the reasoning behind him coming in to the hospital to begin with. Cardiology continues to follow. A cardiac echocardiogram is anticipated. Then we will need to discuss what we need to use for antiarrhythmic agent. 2. Cardiology. Patient with tachydysrhythmia yesterday. In light of a history of paroxysmal atrial fibrillation, his antiarrhythmic agent has been stopped secondary to potential side- effect and secondary to lack of efficacy. Alternate therapy would be indicated. He does continue on Eliquis from a cardioembolic stroke prophylaxis standpoint. EKG is reviewed this morning. I would like cardiology's opinion on nonspecific T-wave inversion in the precordial leads suggestive of ischemia. 3. Pulmonary. Patient with a cough yesterday. A chest x-ray was obtained, demonstrating no evidence of pneumonia or pleural effusion or pneumothorax. His cough is generally better by report. 4. Urinary tract infection, Klebsiella organism from admission on 12/09/2018. We will be repeating the urine culture to ensure clearing. No evidence of bacteremia. He has received 6 days of intravenous antibiotics. Perhaps we can consider stopping this soon. 5. History of fall with closed head injury. This is the reason why he was admitted. CT scan of the head and the neck are unremarkable. Syncopal episode thought to be related to urinary tract infection but now, considering this even yesterday, it is possible that this could be a tachydysrhythmia as well. DISPOSITION: The patient will continue in the intensive care unit for ongoing cardiac monitoring and management. No further issues at this time. Note is dictated on the morning of rounds. cc: Glen Bishop DO
[2018-12-14] MEDS: BREO ELLIPTA 200/25 MCG INH INH SCH (09:47)
[2018-12-14] MEDS: ROCEPHIN 1 GM in NS 50 ML IV SCH (13:52)
--- NOTE | 2018-12-14 14:05 | ECHO REPORT ---
ORDER DATE: 12/13/2018 INTERPRETING PHYSICIAN: Dr. Norris Quintana. ECHOCARDIOGRAPHIC MEASUREMENTS: 1. Interventricular septum 1.0 cm. 2. Left ventricular posterior wall 1.1 cm. 3. Diastolic diameter 5.2 cm. 4. Left atrium 4.0 cm. 5. Aorta 3.2 cm. SUMMARY OF THE 2-DIMENSIONAL IMAGIN. Mitral valve leaflets are normal. 2. Tricuspid valve was normal. 3. Aortic valve leaflets were sclerosed, trileaflet opening normally. 4. Pulmonic valve was normal. There is mild pulmonary regurgitation. 5. Left atrium enlargement noted. 6. There is mild mitral regurgitation. 7. Mild tricuspid regurgitation. Peak velocity across the tricuspid valve was 2.9 m/sec. 8. Pulmonary artery systolic pressure 44 mmHg. 9. There is no aortic stenosis. 10. There is mild aortic regurgitation. 11. Normal left ventricular cavity size. 12. Concentric left ventricular hypertrophy. 13. Estimated ejection fraction of 45-50%. 14. There is septal and apical hypokinesis. 15. There is no pericardial effusion or obvious intracardiac mass or thrombus seen. 16. There is diastolic dysfunction. cc: MD Glen Morataya, DO
[2018-12-14] MEDS: AMBIEN PO SCH (22:02)
[2018-12-15 06:37] LABS: BASO# 0.07 X1000 (0.0-0.2); BASO% 0.9 % (0.0-0.8); EOS# 0.23 X1000 (0.0-0.7); HEMATOCRIT 42.2 % (42.0-52.0); HEMOGLOBIN 14.1 g/dL (14.0-18.0); IMM GRAN# 0.06 X1000 (0.0-0.04); IMM GRAN% 0.8 % (0.0-0.5); LYMPH% 26.3 % (20.5-51.1); MCH 29.7 PG (27-31); MCHC 33.4 g/dL (33-37); MONO# 0.92 X1000 (0.11-0.59); MONO% 12.1 % (1.7-9.3); MPV 9.8 FL (7.4-10.4); NEUT# 4.32 X1000 (1.4-6.5); NEUT% 56.9 % (42.2-75.2); PLT 191 X1000 (130-400); RBC 4.74 XMIL (4.7-6.1); RDW 13.8 % (11.5-14.5)
[2018-12-15 06:45] LABS: PHOSPHORUS 3.4 mg/dL (2.7-4.5)
[2018-12-15 06:47] LABS: AGAP 4; BUN 11 mg/dL (8-22); CALCIUM 8.4 mg/dL (8.8-10.2); CHLORIDE 105 mmol/L (98-107); COSMO 278; CREATININE 0.9 mg/dL (0.7-1.2); ESTIMATED GFR > 60; GLUCOSE 111 mg/dL (70-104); POTASSIUM 4.6 mmol/L (3.5-5.1); SODIUM 139 mmol/L (136-145); TCO2 30 mmol/L (25-35)
--- NOTE | 2018-12-15 07:00 | EKG Report ---
Test Performed on : 12/14/2018 05:57:49 AM Test Reason : rythm change Blood Pressure : / mmHG Vent. Rate : 077 BPM Atrial Rate : 077 BPM P-R Int : 176 ms QRS Dur : 152 ms QT Int : 514 ms P-R-T Axes : 025 -51 118 degrees QTc Int : 581 ms Sinus rhythm. with premature atrial complexes. Left axis deviation Left bundle branch block Abnormal ECG When compared with ECG of 13-DEC-2018 13:40, (Unconfirmed) premature atrial complexes. are now present QT has shortened Confirmed by Anirudh DOMINGUEZ, Lewis Cowan ([id number]) on 12/17/2018 9:39:31 AM
--- NOTE | 2018-12-15 07:26 | PROGRESS NOTE ---
DATE: 12/15/2018 INDICATION FOR PROLONGED HOSPITALIZATION: Patient having been admitted for Klebsiella UTI complicated by sepsis. Approximately 2 days ago on the floor, went into a tachydysrhythmia, specifically torsade de pointe, likely due to ongoing use of antiarrhythmic, Tikosyn, and interaction with urinary tract infection medicine, specifically Levaquin. Both agents have been stopped. He continues to be watched in the intensive care unit. His vitals this morning, blood pressure 97/45, respirations at 20, pulse at 65, saturating 95% on room air. Additional laboratory for this morning shows a white blood cell count at 7.60, hemoglobin and hematocrit of 14.1 and 42.2, a platelet count at 191,000. Chemistry is unremarkable with sodium at 139, potassium 4.6, chloride 105, bicarb 30, BUN and creatinine 11 and 0.6, glucose at 111. Calcium, magnesium, and phosphorus are reviewed. Calcium is slightly low. Is and Os of 1610 in and 1350 out for +260. MEDICATIONS: Medications are reviewed. The patient continues on Eliquis, continues on metoprolol, supplemental potassium, and IV Rocephin, Zocor, Flomax, and Ambien. PHYSICAL EXAMINATION: HEENT: Unremarkable. Cardiovascular: Regular rate and rhythm with occasional ectopic beats. Lungs: Clear. Abdomen: With normoactive bowel sounds. Extremities: Benign, without clubbing, cyanosis, or edema. Neurological: Cranial nerves 2-12 are grossly intact. IMPRESSION: An 83-year-old with sepsis secondary to Klebsiella urinary tract infection without evidence of bacteremia or hemodynamic instability. On the floor, he experienced tachydysrhythmia and was transferred to the intensive care unit for further monitoring. Cardiology has recommended a cardiac echocardiogram which is pending for today. We still will seek recommendations with regards to antiarrhythmic as it relates to atrial fibrillation and he continues on anticoagulation. He continues with a Reaves. A urine culture was obtained yesterday to ensure clearing of urinary tract infection. He is now several days into intravenous antibiotics. He is concerned, secondary to generalized weakness, that he will be unable once the Reaves is removed to make it to the urinal. He is also concerned with the way that the bed is set up that he will be unable to operate the bed to exit independently. For the time being, we will leave the Reaves in. DISPOSITION: The biggest concern and issue today is placement. The patient is awaiting rehab placement at [facility] based on clinical assessment and bed availability. There are no new and/or additional recommendations at this time. EKG for this morning is not well documented. Telemetry strip from 12/13/2018 is available for review. No further recommendations or concerns at this time. I will contact the daughter and apprise her of the situation for today. No new and/or additional recommendations at this time. cc: Glen Bishop DO
--- NOTE | 2018-12-15 07:36 | EKG Report ---
Test Performed on : 12/13/2018 11:25:15 AM Test Reason : change in tele Blood Pressure : / mmHG Vent. Rate : 073 BPM Atrial Rate : 073 BPM P-R Int : 178 ms QRS Dur : 152 ms QT Int : 534 ms P-R-T Axes : 018 -52 136 degrees QTc Int : 588 ms Sinus rhythm. with occasional and consecutive premature ventricular complexes. and premature atrial c omplexes. Left axis deviation Left bundle branch block Abnormal ECG When compared with ECG of 11-DEC-2018 07:12, Sinus rhythm. has replaced Atrial fibrillation. Nonspecific T wave abnormality now evident in Inferior leads T wave inversion more evident in Anterolateral leads Confirmed by Anirudh DOMINGUEZ, Lewis Cowan ([id number]) on 12/17/2018 9:38:25 AM
--- NOTE | 2018-12-15 08:01 | EKG Report ---
Test Performed on : 12/15/2018 07:45:43 AM Test Reason : ABN EKG Blood Pressure : / mmHG Vent. Rate : 118 BPM Atrial Rate : 120 BPM P-R Int : 000 ms QRS Dur : 148 ms QT Int : 314 ms P-R-T Axes : 000 -60 126 degrees QTc Int : 440 ms Atrial fibrillation. with rapid ventricular response. Left axis deviation Left bundle branch block Abnormal ECG When compared with ECG of 14-DEC-2018 05:57, (Unconfirmed) Atrial fibrillation. has replaced Sinus rhythm. Vent. rate has increased BY 41 BPM T wave inversion no longer evident in Anterior leads Confirmed by Anirudh DOMINGUEZ, Lewis Cowan ([id number]) on 12/17/2018 9:40:45 AM
[2018-12-15] MEDS: COLACE PO SCH (08:13)
[2018-12-15] MEDS: KLOR-CON PO SCH (08:13)
[2018-12-15] MEDS: ZOCOR PO SCH (08:13)
[2018-12-15] MEDS: FLOMAX PO SCH (08:13)
[2018-12-15] MEDS: MIRALAX PO SCH (08:14)
[2018-12-15] MEDS: TYLENOL PO PRN (08:14)
[2018-12-15] MEDS: ELIQUIS PO SCH (08:14)
[2018-12-15] MEDS: CYANOCOBALAMIN IM SCH (08:14)
[2018-12-15] MEDS: RESTASIS 0.05% OPH DROPS BOTH EYES SCH (08:23)
--- NOTE | 2018-12-15 08:59 | EKG Report ---
Test Performed on : 12/13/2018 1:40:27 PM Test Reason : ICU. No order in [place] Blood Pressure : / mmHG Vent. Rate : 091 BPM Atrial Rate : 091 BPM P-R Int : 094 ms QRS Dur : 138 ms QT Int : 532 ms P-R-T Axes : 000 -47 139 degrees QTc Int : 654 ms Sinus rhythm. with short NH Left axis deviation Left bundle branch block Abnormal ECG When compared with ECG of 13-DEC-2018 11:25, (Unconfirmed) premature ventricular complexes. are no longer present premature atrial complexes. are no longer present T wave inversion less evident in Lateral leads QT has lengthened Confirmed by Anirudh DOMINGUEZ, Lewis Cowan ([id number]) on 12/17/2018 9:38:57 AM
[2018-12-15] MEDS ORDERED: LOPRESSOR PO SCH (09:00)
[2018-12-15] MEDS: ROCEPHIN 1 GM in NS 50 ML IV SCH (13:13)
[2018-12-15] MEDS: NS + KCL 20 MEQ 1,000 ML IV SCH (13:15)
[2018-12-15 13:19] VITALS: BP 119/92
--- NOTE | 2018-12-15 13:55 | DISCHARGE SUMMARY ---
ADMISSION DATE: 12/09/2018 DISCHARGE DATE: 12/15/2018 TRANSFER SUMMARY: DISCHARGE DIAGNOSES: 1. Urinary tract infection with organism consistent with Klebsiella oxytoca sensitive to Levaquin and resistant to ampicillin and amp sulbactam, patient having been started on Levaquin on admission and coverage added with Rocephin pending return of urine culture and continued on Levaquin. 2. Sepsis, likely UTI related. Present on admission, not requiring additional vasopressor support. The patient did not require any type of unit or supportive care for this particular problem and his blood cultures are negative from admission and his followup urinalysis is negative for recurrent or persistent infection. 3. [place] likely due to interaction between Tikosyn, antiarrhythmic started in May of last year for atrial fibrillation and Levaquin, discontinuing both Tikosyn and Levaquin for unintended side effect. These will be noted on his drug sensitivity roster. He currently has no known drug allergies. 4. Sclerotic aortic valve. Mild pulmonary regurg, left atrial enlargement, mild mitral regurg, pulmonary hypertension, ventricular hypertrophy all by cardiac echo on 12/13/2018. 5. Transaminitis, nonspecific. 6. Low B12 at 278, started on supplemental B12 1000 mcg daily. 7. Low normal vitamin D. Continue with weekly replacement as started prior to admission. 8. Status post fall with closed head injury while on anticoagulation, specifically Eliquis, status post CT scan of the head negative and CT scan of the cervical spine negative. Patient's altered mental status following closed head trauma thought to be due to urosepsis and not to a closed head injury. 9. Additional medical history not germane to this hospitalization including insomnia, hypertension, asthma hypothyroidism, BPH and a recent diagnosis of prostate cancer by biopsy, dyslipidemia, atherosclerotic coronary artery disease, status post bypass in 2009 with recent stress test in July 2018, diverticular disease, chronically elevated right hemidiaphragm, vitamin D deficiency, testosterone deficiency. PROCEDURES DURING ADMISSION: 1. CT scan of the C-spine, indication fall with contusion to head. 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 2. CT scan of the head with no evidence of acute change when compared to previous study dated April 2016. 3. CT scan of the abdomen and pelvis obtained for left lower quadrant pain and fever. Findings suggestive of atelectasis versus right lower lobe pneumonia with bilateral pleural effusions. Questionable interstitial pancreatitis and right-sided pyelonephritis and constipation. 4. Follow up chest x-rays are noted to be unremarkable. 5. Cardiac echo as mentioned above, obtained on 12/13/2018. Findings consistent with aortic sclerosis, mild pulmonary regurg, left atrial enlargement, mild mitral regurg, mild TR, pulmonary pressure estimated at 44 mmHg, concentric LVH and ejection fraction at 45-50% with septal and apical hypokinesis. CONSULTATIONS DURING ADMISSION: Include: Cardiology for development of torsade de Po[place], likely Levaquin and Tikosyn interaction mediated, recommending transfer to unit which was performed. Patient having ruled out for myocardial damage and infarction by serial cardiac enzymes. Recommendations for outpatient stress test with knowledge of negative stress test as recently as July of this year. MEDICATIONS AT THE TIME OF DISCHARGE: Including Tylenol 325 mg p.r.n., Eliquis 5 mg p.o. b.i.d., vitamin B12 1000 mcg IM for 7 days, then every other week for a month, and then monthly thereafter, Colace 100 mg twice daily, Lopez's lozenges at the bedside p.r.n., Breo 200/25 one puff each day, MiraLAX 17 g p.o. b.i.d. p.r.n., 20 mEq of potassium chloride b.i.d., Zocor 40 mg p.o. at bedtime, ProAir as needed, Norvasc 5 mg p.o. daily, levothyroxine 137 mcg once daily, Retain eye drops as directed, metoprolol 25 mg twice daily, fish oil 1000 mg once daily, Flomax 0.4 mg b.i.d. and Ambien 10 mg p.o. at bedtime p.r.n. MEDICATIONS STOPPED DURING THIS ADMISSION: Including Tikosyn 500 mg b.i.d. and an old dose of levothyroxine at 112 mcg once daily changed to 137 mcg once daily which he was taking prior to admission. No ongoing maintenance or continuation of antibiotics are indicated at this time. HOSPITAL COURSE: The patient was admitted to the internal medicine service after suffering a fall over the weekend with contusion of the head resulting in some altered mental status. Based on his clinical decline, it was felt that he would be best interested and evaluated. CT scans initially of the head and neck were unremarkable with concern that lethargy and altered mental status may be secondary to a closed head injury complicated by bleeding. This was not the case. Some additional lab work was obtained demonstrating an elevated white blood cell count, and an abnormal urine. His urine returned positive for Klebsiella and he was started on empiric antibiotic therapy pending return of culture and sensitivity. He continued on Levaquin, continued to spike a fever. He underwent blood cultures which returned as negative and his fever resolved and blood cultures returned negative and a followup urinalysis with culture returned as negative as well. Patient reporting some nonspecific abdominal pain and a CT scan demonstrating the presence of constipation, nonspecific perinephritic and peripancreatic changes, again with a negative followup urine cultures and negative blood cultures . Amylase and lipase were noted to be unremarkable as well. The weekend prior to his discharge he started to demonstrate a significant amount of dysrhythmia, both premature atrial and ventricular beats having a short run of nonsustained ventricular dysrhythmia and then about 30 seconds of torsade de Pointe. At that point, it was felt that he would be best served by moving him to the intensive care unit. He was brought to the intensive care unit and was ruled out for myocardial infarction and his medications were reviewed with potential interaction between Tikosyn and Levaquin, and Levaquin demonstrating approximately a 3% risk of dysrhythmia. It was felt after consultation with Cardiology both locally and in [place] that cessation of Tikosyn and using an alternate medication for atrial fibrillation would be reasonable. He will be continued on the Eliquis as well and a precaution used in the future when considering Levaquin as antibiotic coverage. Patient has continued to remain tachy dysrhythmia free over the past 48 hours. He is hemodynamically stable and being controlled with regards to rate with beta yang alone. Patient lives alone and is too weak to return to independent living. Therefore, rehab has been recommended. We will be transferring him this afternoon to [facility] in [place] who has agreed to accept the patient for post hospital rehab. He will need to be transferred by ambulance secondary to his history of tachy dysrhythmia and also following extreme weakness following recent admission for urosepsis. His hospital course has otherwise been unremarkable. DISPOSITION: We will be transferring the patient as discussed with no other new issues at this time. DATE AND TIME: Discharge summary dictated at 1258 on Friday 12/15. cc: Glen Bishop DO
[2018-12-15] MEDS ORDERED: PNEUMOVAX 23 IM ONE (14:02)
== END 2018-12-15 14:30 | DRG 872 ==
LOC: ED 19:07 → 3N 20:48 → ICU 12-13 14:36
PROVIDERS: ADMIT Internal Medicine; ATTEND Internal Medicine
CPT/HCPCS: 70450; 71010; 71020; 71045; 71046; 72127; 74178; 80048; 80053; 81001; 82150; 82306; 82550; 82607; 83605; 83690; 83735; 84100; 84484; 85025; 85610; 85611; 85651; 85730; 85732; 87040; 87077; 87088; 87186; 90732; 93005; 93010; 93306; 94640; 94761; 97161; 97165; 97530; 97535; 99285; A9270; C8929; J0696; J1956; J3370; J3420; J3475; J3480; J7030; Q9957; Q9967